=== PATIENT | male | born 1990 ===

== ENCOUNTER 2023-10-23 02:34 | Inpatient (IN) | payer OTHER, SELFPAY ==
[2023-10-23] VITALS (14 sets, daily range): BP systolic 92–129; BP diastolic 45–80; PULSE 66–108; RESP 4–20; TEMP 34.3–36.8; O2SAT 93–100; BMI 28.0
--- NOTE | ~2023-10-23 | CT_ITS ---
EXAMINATION: CT ANGIOGRAM NECK AND HEAD CLINICAL INFORMATION: Right-sided numbness and weakness COMPARISON: None. TECHNIQUE: Initial noncontrast head CT was performed. Test bolus sequences followed by intravenous administration 70 mL of Omnipaque 350. Helical imaging was performed in the axial plane from the thoracic inlet to the skull vertex. Delayed postcontrast imaging of the head was also performed. The data was processed at the technologist infectious disease's workstation for generation of MIP sequences. Angled MIPs and volume rendered reformatted images were also generated at an offline 3D workstation. Stenoses are assessed in accordance with NASCET criteria unless otherwise indicated. DOSE LOWERING TECHNIQUES: This CT examination was performed using dose optimization techniques as appropriate, variously including the following: - Automated exposure control - Adjustment of mA and/or kV according to patient size (this includes techniques or standardized protocols for targeted exams were dose is matched to indication/reason for exam; i.e. extremities or head) - Use of iterative reconstruction technique DLP: 2325 mGy-cm FINDINGS: Neck CTA: There is a classic 3 vessel branching pattern of the aortic arch. Normal appearance of the visualized aortic arch and proximal branches. No evidence of stenosis at the branch origins. Both vertebral arteries are widely patent throughout their extracranial cervical course. Normal appearance of the common and internal carotid arteries without focal stenosis. Brain CTA: Normal appearance of the vertebral arteries. Normal appearance of the basilar and superior cerebellar arteries. There appears to be origin of the left posterior cerebral artery. Normally opacified posterior cerebral arteries bilaterally. Normal appearance of the intradural internal carotid arteries without focal stenosis. Normal appearance of the anterior cerebral and middle cerebral arteries without focal occlusion or stenosis. Normal anterior communicating artery. Normal arborization of the middle cerebral arteries. CT Head: No intracranial mass, hemorrhage, extra-axial collection, or midline shift. The davis-white matter differentiation is preserved. No pathologic intra-axial enhancement or regional oligemia. No hydrocephalus. The mastoid air cells and paranasal sinuses remain well aerated. CT Neck: The thyroid gland and remaining cervical soft tissues are normal in appearance. Degenerative endplate changes at C6-C7 with mild intervertebral disc space narrowing. Upper Chest: No abnormalities in the visualized lung apices or upper mediastinum. CT/CT angio head neck IMPRESSION: No hemodynamically significant stenosis in the major arteries of the neck. No large vessel occlusion or significant stenosis in the intracranial circulation.
--- NOTE | ~2023-10-23 | XR_ITS ---
EXAMINATION: XR CHEST CLINICAL INFORMATION: Hypoxia. COMPARISON: None available. TECHNIQUE: Frontal view of the chest was obtained. FINDINGS: Low lung volumes. Mild bibasilar atelectasis. No consolidation, pneumothorax, or pleural effusion. Cardiac and mediastinal contours are normal. Pulmonary vasculature is unremarkable. No acute osseous findings. XR/XR chest 1V IMPRESSION: Low lung volumes with mild bibasilar atelectasis.
--- NOTE | 2023-10-23 02:36 | PC.NURSE ---
Pt to office coordinator receptionist desk with complaints of possible stroke. This securities underwriter attempted to bring pt into triage room for initial assessment and vitals, however pt states he needs a drink. Pt advised that he will need to be assessed by the provider first and pt states vwell I need a drink are you refusing me medical care?! This securities underwriter again advised pt to enter triage room to be assessed and pt states Im getting a drink first! Pt observed walking to vending machines, purchasing an orange soda, dropping orange soda, quickly picking it up and chugging it. No slurred speech, facial droop, or overt extremity weakness noted. Pt taken directly to ED 20.
--- NOTE | 2023-10-23 03:44 | ECG_ITS ---
Test Reason : OD Blood Pressure : / mmHG Vent. Rate : 085 BPM Atrial Rate : 085 BPM P-R Int : 152 ms QRS Dur : 092 ms QT Int : 370 ms P-R-T Axes : 033 -05 006 degrees QTc Int : 440 ms Normal sinus rhythm Minimal voltage criteria for LVH, may be normal variant ( R in aVL ) Nonspecific T wave abnormality Abnormal ECG No previous ECGs available Referred By: Sydnie Jiménez Electronically Signed By:Sukhdev Bolivar
[2023-10-23 04:03] LABS: MANUAL DIFF FLAG NO
[2023-10-23 04:04] LABS: Basophils Percent Auto 0.3 % (0-2); Eosinophils Percent Auto 0.5 % (0-4); Hematocrit 39.7 % (42.0-52.0); Hemoglobin 13.5 g/dl (14.0-18.0); Imm Gran Abs Auto 0.01 X10*3/uL (0.00-0.03); Imm Gran Pct Auto 0.2 % (0.0-0.4); Lymphocytes Absolute Auto 1.3 X10*3/uL (1.2-4.9); Lymphocytes Percent Auto 22.4 % (20-40); Mean Corpuscular Hemoglobin 29.6 pg (27.0-33.0); Mean Corpuscular Volume 87.1 fL (80.0-98.0); Mean Platelet Volume 9.5 fL (9.4-12.4); Monocytes Absolute Auto 0.7 X10*3/uL (0.1-1.2); Monocytes Percent Auto 10.9 % (2-11); Neutrophils Absolute Auto 3.9 x10*3/uL (2.0-8.3); Neutrophils Percent Auto 65.7 % (45-73); Platelet Count 169 X10*3/uL (160-400); Red Blood Count 4.56 X10*6/uL (4.60-5.80); Red Cell Distribution Width 12.7 % (11.0-16.0); White Blood Count 5.9 X10*3/uL (4.8-10.8)
[2023-10-23] MEDS: 0.9 % Sodium Chloride 1,000 ML 999 ML IV ×2 (04:06→04:36)
[2023-10-23 04:20] LABS: Alanine Aminotransferase 93 U/L (0-40); Albumin Level 4.2 g/dL (3.5-5.0); Alkaline Phosphatase 62 U/L (39-117); Anion Gap 11 (12-20); Aspartate Amino Transferase 311 U/L (5-37); Bilirubin Direct 0.2 mg/dL (0.0-0.5); Bilirubin Total 0.5 mg/dL (0.0-1.0); Blood Urea Nitrogen 19 mg/dL (9-16); Calcium 8.9 mg/dL (8.4-10.2); Carbon Dioxide 30 mmol/L (22-29); Chloride 102 mmol/L (96-108); Creatinine Clr Calc Pharmacy 92.3; Estimated Glomerular Filt Rate > 60; Ethanol < 10 mg/dL; Glucose Random 195 mg/dL (60-115); Lipase 11 U/L (8-78); Magnesium 2.3 mg/dL (1.6-2.6); Potassium 3.6 mmol/L (3.3-5.1); Sodium 139 mmol/L (135-145); Total Protein 7.3 g/dL (6.5-8.0)
--- NOTE | 2023-10-23 04:23 | ED_ITS ---
HPI - Neuro Symptoms/Deficit General Chief Complaint: ETOH/Substance Use Stated Complaint: stroke Time Seen by Provider: 10/23/23 03:41 Source: patient Mode of arrival: ambulatory Limitations: other (under the influence very poor historian) History of Present Illness ED Provider: AURE LOCK Narrative: 33 yo male with PMH of IVDA who presented to the triage window with c/o stroke then walked away from the industrial workers got an orange soda and threw it on the ground. Our hot car charger then brought him back and got him changed over with security and he gave a more lucid statement of overdosing yesterday and waking up with R sided weakness and numbness. When I went to see him she notes he is much more somnolent pinpoint pupils there is concern he used again as he was not like this on triage. He denies. He tells me although he is slurring his words and falling asleep that he used yesterday and overdosed he thinks it was around 3pm he then woke up at 5pm and his R side felt weaker and numb. He used again in the evening and somehow made it here from [place] but that is not clear. He then states he was recently at [facility] with a PICC line but then falls asleep. His is 95% on 4L NC, wakes to loud verbal stimuli, jumps and yells no if he hears the word narcan and his end tidal is was 10 to 12. Onset (ago): day(s) (?yesterday 3pm) Location: right face, right arm and right leg History of same: No Severity: mild Quality: weak and numb Relieving factors: none Exacerbating factors: none Context: sudden onset On Anticoagulants: No Associated symptoms: denies other symptoms Treatments Prior to Arrival: none Related Data Home Medications ?Medication ?Instructions ?Recorded ?Confirmed amitriptyline 50 mg tablet 50 mg PO BEDTIME 10/23/23 aripiprazole 15 mg tablet 15 mg PO DAILY 10/23/23 buprenorphine 8 mg-naloxone 2 mg 1 film sublingual TID 10/23/23 sublingual film dextroamphetamine-amphetamine ER 1 cap PO DAILY 10/23/23 15 mg 24hr capsule,extend release dextroamphetamine-amphetamine ER 1 cap PO BID 10/23/23 30 mg 24hr capsule,extend release gabapentin 800 mg tablet 800 mg PO TID 10/23/23 hydroxyzine pamoate 25 mg capsule 25 mg PO TID 10/23/23 ibuprofen 600 mg tablet 600 mg PO Q6H PRN Pain (Scale 10/23/23 Score 1-3) ketoconazole 2 % topical cream 1 appl topical DAILY 10/23/23 loratadine 10 mg tablet 10 mg PO DAILY 10/23/23 testosterone cypionate 200 mg/mL IM 10/23/23 intramuscular oil Allergies Allergy/AdvReac Type Severity Reaction Status Date / Time No Known Allergies Allergy Verified 10/23/23 02:54 Review of Systems 2 Review of Systems: Constitutional : No Fever, No Chills, No Fatigue ENT/Mouth : No sore throat, No Rhinorrhea Eyes: No Eye Pain, No Swelling, No Redness Cardiovascular : No Chest Pain, No SOB, No Dyspnea on Exertion Respiratory : No Cough, No Sputum Gastrointestinal : No Nausea, No Vomiting, No Diarrhea, No abdominal Pain Genitourinary : No Dysuria, No Urinary Frequency, No Hematuria, Musculoskeletal : No joint pain, No Myalgias, No Joint Swelling Skin : No Skin Lesions, No rash Neuro : pos Weakness, pos Numbness, No Dizziness, no Headache Psych : No Anxiety/Panic, No Depression All other systems reviewed and are negative [facility] Past Medical History Medical History Intravenous drug abuse Social History Social History (Updated 10/23/23 @ 04:33 by Sydnie Jiménez DO) Patient Tobacco Use Status: Current everyday Tobacco user Smoked in Last 30 Days: Yes Substance Use Type: Crack/Cocaine and Heroin Advance Directives: No Advance Directives Information Provided: No Do you have a plan to hurt others: No Plan Physical Exam 2 Vital Signs: Vital Signs: Last Vital Signs Temp 97.5 F 10/23/23 07:15 Pulse 78 10/23/23 07:15 Resp 10 L 10/23/23 07:15 BP 112/63 10/23/23 07:15 Pulse Ox 100 10/23/23 07:15 O2 Del Method Nasal Cannula 10/23/23 07:15 O2 Flow Rate 3 10/23/23 07:15 BMI result Body Mass Index 28.0 Appearance: opiate intoxication - somnolent but woken by voice saying narcan, tactile stimuli on end tidal and O2, mild acute distress. Eyes: Pupils pinpoint ENT: Pharynx dry MMM Neck: Normal inspection. Neck supple. CVS: tachycardic heart rate and rhythm. Pulses normal. Respiratory: No respiratory distress. Breath sounds normal. Abdomen: Soft and nontender. Skin: Skin warm and dry. Normal skin color. track kendall noted no signs of cellulitis Extremities: No lower extremity edema. compartments are soft and compressible I do not see any areas of compartment syndrome R arm and leg is soft, L ball of foot bloodied blister Neuro: Oriented X 3. 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, R leg weaker than left, he reports he feels it less than left to light touch has R wrist drop Course Course Course Narrative: more sleepy 0.2mg narcan ordered he is now hypotensive and less responsive Reevaluation(s) Reevaluation #1: patient more awake still not a good historian no vomiting BP is coming up Reevaluation #2: BP coming up Medications Administered Generic Name Dose Route Start Last Admin Trade Name Freq PRN Reason Stop Dose Admin Sodium Chloride 1,000 mls @ 200 mls/hr 10/23/23 05:15 10/23/23 06:16 Ns IVCONT 10/23/23 10:14 200 mls/hr .Q5H ALVARO Administration Discontinued Medications Generic Name Dose Route Start Last Admin Trade Name Freq PRN Reason Stop Dose Admin Sodium Chloride 1,000 mls @ 999 mls/hr 10/23/23 03:42 10/23/23 06:15 Ns IV 10/23/23 04:42 Infused .Q1H1M ONE Infusion Sodium Chloride 1,000 mls @ 999 mls/hr 10/23/23 04:32 10/23/23 06:15 Ns IV 10/23/23 05:32 Infused .Q1H1M ONE Infusion Iohexol 70 ml 10/23/23 05:28 10/23/23 05:29 Iohexol 350 Mg/Ml 100 Ml Infus..Btl IV 10/23/23 05:29 70 ml ONCE ONE Administration Naloxone HCl 0.2 mg 10/23/23 06:20 10/23/23 06:29 Naloxone Hcl 0.4 Mg/Ml Vial IVPUSH 10/23/23 06:21 0.2 mg STAT STA Administration Ondansetron HCl 4 mg 10/23/23 06:23 10/23/23 06:31 Ondansetron Hcl 4 Mg/2 Ml Vial IVPUSH 10/23/23 06:24 4 mg ONCE ONE Administration Medical Decision Making Medical Decision Making [facility] Narrative: 33 yo male with PMH of IVDA here with c/o R sided weakness and numbness following overdose sometime yesterday he thinks after using at 3pm but he also used after he thinks he was down for 2 hours. Unsure if this is septic embolic, hypoxic event, very high suspicion of peripheral nerve compression. He does have some weakness but he is also not the best historian. No signs of compartment syndrome. Labs, IVF, CTA head and neck. He has R wrist drop from likely prolonged downtime. We did ask for records from [facility] Differential Diagnosis Differential Diagnoses: The differential diagnosis associated with the presentation includes rhabdo, hypoxic event, embolic event, ICH, drug abuse, prior stroke Admission/Observation Consideration of admission/observation: Escalation of care including admission/observation considered rhabdo needs admission Consult Healthcare Provider Management of the patient was discussed with: Hospitalist (will admit 625am Neil) Lab Data [facility] Lab Attestation statement: I reviewed the patient's lab results. 10/23/23 03:57 10/23/23 03:57 Labs: Lab Results 10/23/23 Range/Units 03:57 WBC 5.9 (4.8-10.8) X10*3/uL RBC 4.56 L (4.60-5.80) X10*6/uL Hgb 13.5 L (14.0-18.0) g/dl Hct 39.7 L (42.0-52.0) % MCV 87.1 (80.0-98.0) fL MCH 29.6 (27.0-33.0) pg MCHC 34.0 (31.0-36.0) g/dl RDW 12.7 (11.0-16.0) % Plt Count 169 (160-400) X10*3/uL MPV 9.5 (9.4-12.4) fL Immature Gran % (Auto) 0.2 (0.0-0.4) % Neut % (Auto) 65.7 (45-73) % Lymph % (Auto) 22.4 (20-40) % [place] % (Auto) 10.9 (2-11) % Eos % (Auto) 0.5 (0-4) % Baso % (Auto) 0.3 (0-2) % Lymph # (Auto) 1.3 (1.2-4.9) X10*3/uL [place] # (Auto) 0.7 (0.1-1.2) X10*3/uL Eos # (Auto) 0.0 (0.0-0.4) X10*3/uL Baso # (Auto) 0.0 (0.0-0.2) X10*3/uL Abs Immat Gran (auto) 0.01 (0.00-0.03) X10*3/uL Absolute Neuts (auto) 3.9 (2.0-8.3) x10*3/uL Absolute Nucleated RBC 0.000 (0.0-0.012) X10*3/uL Nucleated RBC % (auto) 0.0 (0.0-0.2) /100WBC PT 14.5 H (11.1-13.3) SEC INR 1.2 H (0.9-1.1) Sodium 139 (135-145) mmol/L Potassium 3.6 (3.3-5.1) mmol/L Chloride 102 (96-108) mmol/L Carbon Dioxide 30 H (22-29) mmol/L Anion Gap 11 L (12-20) BUN 19 H (9-16) mg/dL Creatinine 1.25 (0.5-1.4) mg/dL Estim Creat Clear Calc 92.3 Estimated GFR > 60 Random Glucose 195 H (60-115) mg/dL Calcium 8.9 (8.4-10.2) mg/dL Magnesium 2.3 (1.6-2.6) mg/dL Total Bilirubin 0.5 (0.0-1.0) mg/dL Direct Bilirubin 0.2 (0.0-0.5) mg/dL AST 311 H (5-37) U/L ALT 93 H (0-40) U/L Alkaline Phosphatase 62 (39-117) U/L Total Creatine Kinase 82285 H (38-174) U/L Troponin I High Sens 5.0 (<3.5-35.0) ng/L Total Protein 7.3 (6.5-8.0) g/dL Albumin 4.2 (3.5-5.0) g/dL Lipase 11 (8-78) U/L Ethyl Alcohol < 10 mg/dL Influenza Type A (PCR) NEGATIVE (Negative) Influenza Type B (PCR) NEGATIVE (Negative) RSV RNA Qual (PCR) NEGATIVE (Negative) SARS-CoV-2 RNA (RT-PCR) NEGATIVE (Negative) Independent Interpretation I performed an independent interpretation of an: EKG and CT Scan (normal) Interpretation: Rate: 85 Rhythm: NSR [place]: left, LVH Normal P waves. Normal JERAD. Normal QRS complex. ST T wave : no GRISELDA, biphasic t waves V1 and V1 qTC: 440 prior studies: no prior The study has been interpreted contemporaneously by me. . Radiology Impression Discussion of test interpretation with radiology: I have reviewed the radiologist's reading. Critical Care Time Critical Care Time Critical Care Time: Yes Total Critical Care Time: 60 Attestation: 2L of IVF, narcan, CTA of head/neck, repeat assessments, admission, narcan for overdose I attest to this time spent taking care of the patient Discharge Plan Discharge Clinical Impression: Weakness, Right wrist drop Opiate overdose Qualifiers: Encounter type: initial encounter Injury intent: accidental or unintentional Q ualified Code(s): T40.601A - Poisoning by unspecified narcotics, accidental (unintentional), initial encounter Rhabdomyolysis Qualifiers: Rhabdomyolysis type: non-traumatic Qualified Code(s): M62.82 - Rhabdomyolysis Patient Disposition: Admitted As Inpatient Print Language: Unable To Collect
--- NOTE | 2023-10-23 04:28 | PC.NURSE ---
this information writer triaged patient immediately upon arrival to ED 20, pt was awake, alert, answering questions appropriately, no facial droop or obvious deformities/weakness noted. 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 security at bedside during time of triage, changed over into hospital attire and belongings placed in decon. moments later, primary RN entered room and had discussion/assessment of patient. after some time, pt fell asleep, O2 sat dropped down to 86% room air and patient appeared extremely lethargic/difficult to arouse. pt moved to ED room 12 and placed on 4L O2 with capnography. pt denies using anything in the room, states he used just prior to arrival. RR slow, approx 4. end tidal 8-12. MD her aware and at bedside, no order to administer narcan at this time. pt arousable to name and sternal rubs. pt within view of nurses station. iv line established, labs sent, waiting for CT scan. normal saline fluid bolus infusing. plan of care ongoing
[2023-10-23 04:35] LABS: INTERNATIONAL NORM RATIO 1.2 (0.9-1.1); Prothrombin Time 14.5 SEC (11.1-13.3)
[2023-10-23 04:40] LABS: Influenza A PCR NEGATIVE (Negative); Influenza B PCR NEGATIVE (Negative); Resp Syncy Virus RNA Qual PCR NEGATIVE (Negative); SARS COV2 PCR INHOUSE NEGATIVE (Negative)
[2023-10-23] MEDS: iohexoL 350 MG/ML 100 ML INFUS..BTL 70 ML IV (05:29)
[2023-10-23] MEDS: 0.9 % Sodium Chloride 1,000 ML 200 ML IVCONT (06:16)
[2023-10-23] MEDS: Naloxone HCl 0.4 MG/ML VIAL 0.2 MG IVPUSH (06:29)
[2023-10-23] MEDS: ondansetron HCL 4 MG/2 ML VIAL IVPUSH (06:31)
--- NOTE | 2023-10-23 08:16 | PHA.MEDREC ---
Addendum entered by Maren Dodson [facility] 10/24/23 08:06: Patient was able to tell his RN this morning his medication list. Patient confirmed to no longer be on Keppra, Claritin, Abilify, Suboxone, and hydroxyzine. Patient currently only takes adderall, amitriptyline, valium and testosterone. Addendum entered by Maren Dodson [facility] 10/23/23 09:36: received call back from the pharmacy, confirmed patient is on keppra 500 mg BID and testos 0.5 mL Q7days on Wednesdays Original Note: Pharmacy Consult ? Medication Reconciliation Pharmacy has completed the medication reconciliation. Patient is unable to give history. Used pharmacy claims as well as PDMP. Could not confirm dose of testosterone, Left voicemail will pharmacy for clarification.
[2023-10-23] MEDS: Sodium Bicarbonate 8.4% 150 MEQ in Dextrose 5 % 850 ML 50 MEQ IV (08:25)
--- NOTE | 2023-10-23 08:26 | PC.NURSE ---
patient resting quietly in bed, respirations slow, equal and unlabored. patient wakes up to verbal stimuli, pupils perrla - pinpoint. patient responds appropriatly to questions, alert and oriented x4, very sleepy. VSS, skin dry and intact. patient noted to have blisters on feet. patient has present equal radial pulses, bilat pedal pulses present equal. patient noted on the right side to have drop wrist. patient medicated per MAY, has NS running 200ml/hr
--- NOTE | 2023-10-23 08:36 | PM.IMHP ---
History of Present Illness Date of Service: 10/23/23 Chief Complaint: right sided weakness 33M PMH polysubstance dependence, htn, adhd, mood disorder, LBBB, presented with right sided weakness. patient stating he was having a stroke . cta head and neck was negative. he is vague historian. very lethargic during interview. admits to taking opiates. reports passing out previously and lying on ground for long time. labs significant for rhabdo with cpk of 20K, creatinine normal. did require one dose of narcan for bradypnea and hypotension, responded well. Review of Systems Review of Systems: Yes all other systems are reviewed and are negative [facility] Medical History Intravenous drug abuse Social History Patient Tobacco Use Status: Current everyday Tobacco user Smoked in Last 30 Days: Yes Substance Use Type: Crack/Cocaine and Heroin Advance Directives: No Advance Directives Information Provided: No Do you have a plan to hurt others: No Plan Meds Allergies Allergy/AdvReac Type Severity Reaction Status Date / Time No Known Allergies Allergy Verified 10/23/23 02:54 Active Medications: Current Medications Amitriptyline HCl (Amitriptyline Hcl 50 Mg Tablet) 50 mg PO BEDTIME ALVARO Amphetamine/Dextroamphetamine (Dextroamphetamine/Amphetamine Xr 10 Mg Cap.Er.24h) 30 mg PO BID ALVARO Amphetamine/Dextroamphetamine (Dextroamphetamine/Amphetamine Xr 5 Mg Cap.Er.24h) 15 mg PO DAILY ALVARO Aripiprazole (Aripiprazole 15 Mg Tablet) 15 mg PO DAILY [facility] Buprenorphine/Naloxone (Buprenorphine/Naloxone 8/2 Mg Film) 1 film SUBLINGUAL TID [facility] Sodium Chloride (Ns) 1,000 mls @ 200 mls/hr IVCONT .Q5H ALVARO Stop: 10/23/23 10:14 Last Admin: 10/23/23 06:16 Dose: 200 mls/hr Sodium Bicarbonate 150 meq/ (Dextrose) 1,000 mls @ 50 mls/hr IV .Q20H ALVARO Last Admin: 10/23/23 08:25 Dose: 50 mls/hr Lactated Ringer's (Lr) 1,000 mls @ 150 mls/hr IVCONT .Q6H40M [facility] Levetiracetam (Levetiracetam 500 Mg Tablet) 500 mg PO BID [facility] Loratadine (Loratadine 10 Mg Tablet) 10 mg PO DAILY [facility] Home Medications ?Medication ?Instructions ?Recorded ?Confirmed ?Last Taken ?Type amitriptyline 50 mg tablet 50 mg PO BEDTIME 10/23/23 10/23/23 Unknown History aripiprazole 15 mg tablet 15 mg PO DAILY 10/23/23 10/23/23 Unknown History buprenorphine 8 mg-naloxone 2 mg 1 film sublingual TID 10/23/23 10/23/23 Unknown History sublingual film dextroamphetamine-amphetamine ER 1 cap PO DAILY 10/23/23 10/23/23 Unknown History 15 mg 24hr capsule,extend release dextroamphetamine-amphetamine ER 1 cap PO BID 10/23/23 10/23/23 Unknown History 30 mg 24hr capsule,extend release gabapentin 800 mg tablet 800 mg PO TID 10/23/23 10/23/23 Unknown History hydroxyzine pamoate 25 mg capsule 25 mg PO TID 10/23/23 10/23/23 Unknown History ibuprofen 600 mg tablet 600 mg PO Q6H PRN Pain (Scale 10/23/23 10/23/23 Unknown History Score 1-3) ketoconazole 2 % topical cream 1 appl topical DAILY 10/23/23 10/23/23 Unknown History levetiracetam 500 mg tablet 500 mg PO BID 10/23/23 10/23/23 Unknown History loratadine 10 mg tablet 10 mg PO DAILY 10/23/23 10/23/23 Unknown History testosterone cypionate 200 mg/mL IM 10/23/23 Unknown History intramuscular oil Physical Exam Vital Signs and Narrative: Vital Signs: Last Vital Signs Temp 97.5 F 10/23/23 07:15 Pulse 78 10/23/23 07:15 Resp 10 L 10/23/23 07:15 BP 112/63 10/23/23 07:15 Pulse Ox 100 10/23/23 07:15 O2 Del Method Nasal Cannula 10/23/23 07:15 O2 Flow Rate 3 10/23/23 07:15 BMI result Body Mass Index 28.0 lethargic oriented times 3, pinpoint pupils, lungs clear, right wrist drop, rue mildly swollen, not tense, sensation and pulses intact Results Labs 10/23/23 03:57 10/23/23 03:57 Labs: Laboratory Results - last 24 hr 10/23/23 03:57 MCV 87.1 MCH 29.6 MCHC 34.0 RDW 12.7 Plt Count 169 MPV 9.5 Immature Gran % (Auto) 0.2 Neut % (Auto) 65.7 Lymph % (Auto) 22.4 [place] % (Auto) 10.9 Eos % (Auto) 0.5 Baso % (Auto) 0.3 Lymph # (Auto) 1.3 [place] # (Auto) 0.7 Eos # (Auto) 0.0 Baso # (Auto) 0.0 Abs Immat Gran (auto) 0.01 Absolute Neuts (auto) 3.9 Absolute Nucleated RBC 0.000 Nucleated RBC % (auto) 0.0 PT 14.5 H INR 1.2 H Anion Gap 11 L Estim Creat Clear Calc 92.3 Estimated GFR > 60 Random Glucose 195 H Calcium 8.9 Magnesium 2.3 Total Bilirubin 0.5 Direct Bilirubin 0.2 AST 311 H ALT 93 H Alkaline Phosphatase 62 Total Creatine Kinase 50607 H Troponin I High Sens 5.0 Total Protein 7.3 Albumin 4.2 Lipase 11 Ethyl Alcohol < 10 Influenza Type A (PCR) NEGATIVE Influenza Type B (PCR) NEGATIVE RSV RNA Qual (PCR) NEGATIVE SARS-CoV-2 RNA (RT-PCR) NEGATIVE Imaging Radiologist's Impressions: Impressions Chest X-Ray 10/23/23 04:45 IMPRESSION: Low lung volumes with mild bibasilar atelectasis. Head/Neck CTA 10/23/23 05:20 IMPRESSION: No hemodynamically significant stenosis in the major arteries of the neck. No large vessel occlusion or significant stenosis in the intracranial circulation. Assessment and Plan (1) Right wrist drop: Status: Acute Plan 33M PMH polysubstance dependence, htn, adhd, mood disorder, LBBB, presented with right sided weakness acute rhabdomyolosis, due to acute toxic encephlaopathy from opiates, complicated by right wrist drop iv hydration, monitor labs, addiction eval, OT htn no longer on meds, monitor mood disorder, adhd continue adderal, keppra, abilify, amitryptilline dvt prophylaxis - lovenox full code patient with rhabdo, likely needs atleast 2 midnights inpatient for aggressive iv hydation Quality Stroke Does the patient have a stroke diagnosis?: No VTE Prior VTE?: No VTE Risk Level:: Medical - moderate - high VTE Device Contraindication: Treatment Not Indicated VTE Drug Contraindication: N/A - Med Ordered
[2023-10-23] MEDS: Loratadine 10 MG TABLET PO (11:18)
[2023-10-23] MEDS: levETIRAcetam 500 MG TABLET PO (11:18)
[2023-10-23] MEDS: Dextroamphetamine/Amphetamine XR 10 MG CAP.ER.24H 30 MG PO ×2 (11:18→20:36)
[2023-10-23] MEDS: Dextroamphetamine/Amphetamine XR 5 MG CAP.ER.24H 15 MG PO (11:18)
[2023-10-23] MEDS: Enoxaparin Sodium 40 MG/0.4 ML SYRINGE SUBCUT (11:19)
[2023-10-23] MEDS: Lactated Ringers 1,000 ML 150 ML IVCONT ×2 (12:04→19:16)
--- NOTE | 2023-10-23 12:16 | PC.NURSE ---
patient right AC IV infiltrated. New IV placed in the patient right foot.
[2023-10-23] MEDS: oxyCODONE HCl Immed Release 5 MG TABLET PO ×2 (13:58→16:42)
[2023-10-23] MEDS: Nicotine 21 MG PATCH.TD24 TRANSDERMA (13:58)
--- NOTE | 2023-10-23 14:50 | HO.ADDICTCON ---
History of Present Illness Date of Service: 10/23/2023 Chief Complaint: rhabdo Reason for Consult: OUD Sources of Information: patient interviewed and chart reviewed HPI Narrative: Patient is a 33 year old male medically admitted with rhabdo after presenting to the ED overnight reporting that he felt like had a stroke due to weakness and numbness on right side. During ED work up he became increasingly somnolent and required small dose of naloxone. Chart reviewed and patient seen by t/w and full time babysitter in main ED. Patient awake, alert, although still appears to be under the influence of substances--pupils pinpoint and nystagmus noted. He denies any withdrawal sx at this time, but states that they will be coming soon . States that he usually takes Subutex 8mg TID--has not had any in about 10 days. Did not appear diaphoretic or restless, speech slightly slurred Reports using approx a gram of fentanyl daily Inquired about benzo use, he reports he is prescribed Diazepam [facility] reviewed, numerous prescriber and prescriptions --also in different states, likely due to being in treatment programs -Buprenorphine 10/11 -Diazepam 10mg 10/15 -----numerous scripts for Diazepam in varying amounts, . Question if he was being tapered off of medication. -Adderall 10/15 Review of Systems Constitutional: Reports as per HPI and Reports no additional constitutional complaints Diagnostics Vital Signs (24Hr): Vital Signs - 24 hr 10/23/23 02:48 10/23/23 04:00 10/23/23 06:12 Temperature 97.9 F 97.4 F 98.2 F Pulse Rate 108 H 66 68 Respiratory Rate 20 4 L 5 L Blood Pressure 129/80 117/79 92/45 L Pulse Oximetry 93 94 96 Oxygen Delivery Method Room Air Room Air Room Air Oxygen Flow Rate 10/23/23 06:47 10/23/23 07:15 10/23/23 11:10 Temperature 97.5 F 97 F Pulse Rate 72 78 85 Respiratory Rate 5 L 10 L 12 Blood Pressure 113/69 112/63 107/67 Pulse Oximetry 100 100 99 Oxygen Delivery Method Room Air Nasal Cannula Room Air Oxygen Flow Rate 3 10/23/23 13:53 Temperature 97.5 F Pulse Rate 67 Respiratory Rate 16 Blood Pressure 107/49 L Pulse Oximetry 96 Oxygen Delivery Method Room Air Oxygen Flow Rate BMI result Body Mass Index 28.0 Labs 10/23/23 03:57 10/23/23 03:57 Labs: Laboratory Results - last 48 hr 10/23/23 03:57 WBC 5.9 RBC 4.56 L Hgb 13.5 L Hct 39.7 L MCV 87.1 MCH 29.6 MCHC 34.0 RDW 12.7 Plt Count 169 MPV 9.5 Immature Gran % (Auto) 0.2 Neut % (Auto) 65.7 Lymph % (Auto) 22.4 [place] % (Auto) 10.9 Eos % (Auto) 0.5 Baso % (Auto) 0.3 Lymph # (Auto) 1.3 [place] # (Auto) 0.7 Eos # (Auto) 0.0 Baso # (Auto) 0.0 Abs Immat Gran (auto) 0.01 Absolute Neuts (auto) 3.9 Absolute Nucleated RBC 0.000 Nucleated RBC % (auto) 0.0 PT 14.5 H INR 1.2 H Sodium 139 Potassium 3.6 Chloride 102 Carbon Dioxide 30 H Anion Gap 11 L BUN 19 H Creatinine 1.25 Estim Creat Clear Calc 92.3 Estimated GFR > 60 Random Glucose 195 H Calcium 8.9 Magnesium 2.3 Total Bilirubin 0.5 Direct Bilirubin 0.2 AST 311 H ALT 93 H Alkaline Phosphatase 62 Total Creatine Kinase 36890 H Troponin I High Sens 5.0 Total Protein 7.3 Albumin 4.2 Lipase 11 Ethyl Alcohol < 10 Influenza Type A (PCR) NEGATIVE Influenza Type B (PCR) NEGATIVE RSV RNA Qual (PCR) NEGATIVE SARS-CoV-2 RNA (RT-PCR) NEGATIVE Imaging Radiology Impressions: ITS Impressions Chest X-Ray 10/23/23 04:45 IMPRESSION: Low lung volumes with mild bibasilar atelectasis. Head/Neck CTA 10/23/23 05:20 IMPRESSION: No hemodynamically significant stenosis in the major arteries of the neck. No large vessel occlusion or significant stenosis in the intracranial circulation. Mental Status Exam Mental Status Exam Patient Appearance: Appropriate Level of Consciousness: Awake (most of the interview ) and Appropriate Patient Behavior: Appropriate Affect Description: Calm Speech Pattern: Slurred (slightly ) Medications Medications Current Medications Acetaminophen (Acetaminophen 325 Mg Tablet) 650 mg PO Q6H PRN PRN Reason: Pain, Mild (Pain Scale 1-3), fever or headache Amitriptyline HCl (Amitriptyline Hcl 50 Mg Tablet) 50 mg PO BEDTIME [facility] Amphetamine/Dextroamphetamine (Dextroamphetamine/Amphetamine Xr 10 Mg Cap.Er.24h) 30 mg PO BID [facility] Last Admin: 10/23/23 11:18 Dose: 30 mg Amphetamine/Dextroamphetamine (Dextroamphetamine/Amphetamine Xr 5 Mg Cap.Er.24h) 15 mg PO DAILY [facility] Last Admin: 10/23/23 11:18 Dose: 15 mg Aripiprazole (Aripiprazole 15 Mg Tablet) 15 mg PO DAILY [facility] Last Admin: 10/23/23 12:09 Dose: Not Given Buprenorphine/Naloxone (Buprenorphine/Naloxone 8/2 Mg Film) 1 film SUBLINGUAL TID [facility] Last Admin: 10/23/23 10:08 Dose: Not Given Calcium Carbonate (Calcium Carbonate 750 Mg Tab.Chew) 750 mg PO Q4H PRN PRN Reason: Heartburn Diazepam (Diazepam 2 Mg Tablet) 2 mg PO TID PRN PRN Reason: Anxiety Enoxaparin Sodium (Enoxaparin Sodium 40 Mg/0.4 Ml Syringe) 40 mg SUBCUT Q24H [facility] Last Admin: 10/23/23 11:19 Dose: 40 mg Gabapentin (Gabapentin 400 Mg Capsule) 800 mg PO TID [facility] Sodium Bicarbonate 150 meq/ (Dextrose) 1,000 mls @ 50 mls/hr IV .Q20H [facility] Last Admin: 10/23/23 08:25 Dose: 50 mls/hr Lactated Ringer's (Lr) 1,000 mls @ 150 mls/hr IVCONT .Q6H40M [facility] Last Admin: 10/23/23 12:04 Dose: 150 mls/hr Levetiracetam (Levetiracetam 500 Mg Tablet) 500 mg PO BID [facility] Last Admin: 10/23/23 11:18 Dose: 500 mg Loratadine (Loratadine 10 Mg Tablet) 10 mg PO DAILY [facility] Last Admin: 10/23/23 11:18 Dose: 10 mg Magnesium Hydroxide (Milk Of Magnesia 30 Ml Oral.Susp) 30 ml PO DAILY PRN PRN Reason: Constipation Melatonin (Melatonin 3 Mg Tablet) 6 mg PO BEDTIME PRN PRN Reason: Insomnia Nicotine (Nicotine 21 Mg Patch.Td24) 21 mg TRANSDERMA DAILY [facility] Last Admin: 10/23/23 13:58 Dose: 21 mg Sodium Chloride (0.9 % Sodium Chloride Flush 3 Ml Syringe) 3 ml IVFLUSH QSHIFT [facility] Allergies Allergies Allergy/AdvReac Type Severity Reaction Status Date / Time No Known Allergies Allergy Verified 10/23/23 02:54 Assessment & Plan Assessment & Plan (1) Opioid use disorder: Status: Acute Code(s): F11.90 - Opioid use, unspecified, uncomplicated Assessment and Plan: too soon to restart buprenorphine due to fentanyl use --patient also declined for this reason does not wish to take methadone to address withdrawal sx comfort medications as needed oxycodnone PRN to address discomfort and withdrawal sx, until Thursday when Buprenorphine can be restarted concern for benzodiazepine misuse monitor for oversedation UDS pending HIV and Hep C screen appropriate given risk factors Total time managing care of this patient today __20__ minutes. PMFSH Past Medical History Medical History Intravenous drug abuse Social History Social History Patient Tobacco Use Status: Current everyday Tobacco user Smoked in Last 30 Days: Yes Substance Use Type: Crack/Cocaine and Heroin Advance Directives: No Advance Directives Information Provided: No Do you have a plan to hurt others: No Plan
[2023-10-23] MEDS: diazePAM 2 MG TABLET PO ×2 (16:26→22:56)
[2023-10-23] MEDS: Gabapentin 400 MG CAPSULE 800 MG PO ×2 (16:26→20:34)
--- NOTE | 2023-10-23 17:03 | PC.NURSE ---
800 ml urine emptied from patient urinal
[2023-10-23] MEDS: Amitriptyline HCl 50 MG TABLET PO (20:35)
--- NOTE | 2023-10-23 21:04 | PC.NURSE ---
Addendum entered by Racheal Ortega RN 10/23/23 21:14: Pt also with IV to R foot. Placed in ED. This RN notified MD Trejo to please order for ok to place IV in foot. Original Note: This RN in to give patient nighttime scheduled meds. Patient asking for pain medication for pain to R ankle. This RN notified patient that he has 5mg of oxy he can get. Patient began yelling that Oxy will not help. This RN asked patient what his pain level was and patient started yelling im in 09/01 fshiva pain. What do you not get? Im in pain and I need something stronger than Oxy. Patient verbally escalating. Demanding to speak with MD and fired this RN from being patients nurse. Pt informed he has cannot verbally assault this RN. This RN left patients room and notified MD Trejo. to speak with patient when available.
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
[2023-10-23] MEDS: HYDROmorphone HCl 2 MG TABLET 1 MG PO (22:39)
[2023-10-23] MEDS: Acetaminophen 325 MG TABLET 650 MG PO (23:01)
[2023-10-23] MEDS: oxyCODONE HCl Immed Release 5 MG TABLET 10 MG PO (23:22)
[2023-10-23] MEDS: LORazepam 1 MG TABLET PO (23:22)
[2023-10-24] VITALS (14 sets, daily range): BP systolic 108–174; BP diastolic 63–80; PULSE 64–107; RESP 12–20; TEMP 36.2–36.6; O2SAT 97–100
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
[2023-10-24] MEDS: oxyCODONE HCl Immed Release 5 MG TABLET 10 MG PO ×3 (03:34→14:01)
[2023-10-24] MEDS: HYDROmorphone HCl 2 MG TABLET 1 MG PO (03:34)
[2023-10-24] MEDS: Lactated Ringers 1,000 ML 150 ML IVCONT (03:35)
[2023-10-24] MEDS: Sodium Bicarbonate 8.4% 150 MEQ in Dextrose 5 % 850 ML 50 MEQ IV (03:53)
--- NOTE | 2023-10-24 05:31 | PC.NURSE ---
Pt requesting phone to call his mother. This RN stated to patient that the phone will be brought in so he can call his mother but as soon as he starts becoming aggressive again and yelling and throwing, phone privileges will be removed. Patient stated he is aware and is in verbal agreement not to get aggressive.
[2023-10-24 06:27] LABS: Hematocrit 36.5 % (42.0-52.0); Hemoglobin 12.7 g/dl (14.0-18.0); Mean Corpuscular HGB Conc 34.8 g/dl (31.0-36.0); Mean Corpuscular Hemoglobin 30.7 pg (27.0-33.0); Mean Corpuscular Volume 88.2 fL (80.0-98.0); Mean Platelet Volume 9.5 fL (9.4-12.4); Platelet Count 149 X10*3/uL (160-400); Red Blood Count 4.14 X10*6/uL (4.60-5.80); Red Cell Distribution Width 12.5 % (11.0-16.0); White Blood Count 4.9 X10*3/uL (4.8-10.8)
[2023-10-24 06:58] LABS: Anion Gap 12 (12-20); Blood Urea Nitrogen 9 mg/dL (9-16); Calcium 8.3 mg/dL (8.4-10.2); Carbon Dioxide 28 mmol/L (22-29); Chloride 103 mmol/L (96-108); Creatinine Clr Calc Pharmacy 151.9; Estimated Glomerular Filt Rate > 60; Glucose Fasting 102 mg/dL (60-99); Potassium 3.6 mmol/L (3.3-5.1); Sodium 139 mmol/L (135-145)
[2023-10-24] MEDS: Dextroamphetamine/Amphetamine XR 10 MG CAP.ER.24H 60 MG PO (08:45)
[2023-10-24] MEDS: Enoxaparin Sodium 40 MG/0.4 ML SYRINGE SUBCUT (08:49)
[2023-10-24] MEDS: Nicotine 21 MG PATCH.TD24 TRANSDERMA (08:49)
[2023-10-24] MEDS: levETIRAcetam 500 MG TABLET PO (08:49)
[2023-10-24] MEDS: Dextroamphetamine/Amphetamine XR 5 MG CAP.ER.24H 15 MG PO (08:49)
--- NOTE | 2023-10-24 08:49 | HO.PM.IMPN ---
Subjective Subjective Date of Service: 10/24/23 Interval History: right arm pain Physical Exam Vital Signs: Vital Signs: Last Vital Signs Temp 97.1 F 10/24/23 07:42 Pulse 64 10/24/23 07:42 Resp 18 10/24/23 07:42 BP 126/74 10/24/23 07:42 Pulse Ox 97 10/24/23 07:42 O2 Del Method Room Air 10/24/23 07:42 O2 Flow Rate 3 10/23/23 07:15 BMI result Body Mass Index 28.0 Appearance: opiate intoxication - somnolent but woken by voice saying narcan, tactile stimuli on end tidal and O2, mild acute distress. Eyes: Pupils pinpoint ENT: Pharynx dry MMM Neck: Normal inspection. Neck supple. CVS: tachycardic heart rate and rhythm. Pulses normal. Respiratory: No respiratory distress. Breath sounds normal. Abdomen: Soft and nontender. Skin: Skin warm and dry. Normal skin color. track kendall noted no signs of cellulitis Extremities: No lower extremity edema. compartments are soft and compressible I do not see any areas of compartment syndrome R arm and leg is soft, L ball of foot bloodied blister Neuro: Oriented X 3. 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, R leg weaker than left, he reports he feels it less than left to light touch has R wrist drop Objective Data Active Medications Acetaminophen (Acetaminophen 325 Mg Tablet) 650 mg PO Q6H PRN PRN Reason: Pain, Mild (Pain Scale 1-3), fever or headache Last Admin: 10/23/23 23:01 Dose: 650 mg Documented By: SALVADOR Amitriptyline HCl (Amitriptyline Hcl 50 Mg Tablet) 50 mg PO BEDTIME [facility] Last Admin: 10/23/23 20:35 Dose: 50 mg Documented By: SALVADOR Amphetamine/Dextroamphetamine (Dextroamphetamine/Amphetamine Xr 5 Mg Cap.Er.24h) 15 mg PO DAILY@0800 [facility] Amphetamine/Dextroamphetamine (Dextroamphetamine/Amphetamine Xr 10 Mg Cap.Er.24h) 60 mg PO DAILY@0800 [facility] Calcium Carbonate (Calcium Carbonate 750 Mg Tab.Chew) 750 mg PO Q4H PRN PRN Reason: Heartburn Diazepam (Diazepam 5 Mg Tablet) 10 mg PO TID@0800,1200,1600 [facility] Enoxaparin Sodium (Enoxaparin Sodium 40 Mg/0.4 Ml Syringe) 40 mg SUBCUT Q24H [facility] Last Admin: 10/23/23 11:19 Dose: 40 mg Documented By: NATALEE Gabapentin (Gabapentin 400 Mg Capsule) 800 mg PO TID@0800,1200,1600 [facility] Lactated Ringer's (Lr) 1,000 mls @ 150 mls/hr IVCONT .Q6H40M [facility] Last Admin: 10/24/23 04:59 Dose: Not Given Documented By: SALVADOR Non-Admin Reason: IV Running Levetiracetam (Levetiracetam 500 Mg Tablet) 500 mg PO BID [facility] Last Admin: 10/23/23 20:38 Dose: Not Given Documented By: SALVADOR Non-Admin Reason: Patient Refused Magnesium Hydroxide (Milk Of Magnesia 30 Ml Oral.Susp) 30 ml PO DAILY PRN PRN Reason: Constipation Melatonin (Melatonin 3 Mg Tablet) 6 mg PO BEDTIME PRN PRN Reason: Insomnia Nicotine (Nicotine 21 Mg Patch.Td24) 21 mg TRANSDERMA DAILY [facility] Last Admin: 10/23/23 13:58 Dose: 21 mg Documented By: NATALEE Oxycodone HCl (Oxycodone Hcl Immed Release 5 Mg Tablet) 10 mg PO Q4H PRN PRN Reason: Pain, Moderate(Pain Scale 4-6) Last Admin: 10/24/23 03:34 Dose: 10 mg Documented By: SALVADOR Sodium Chloride (0.9 % Sodium Chloride Flush 3 Ml Syringe) 3 ml IVFLUSH QSHIFT [facility] Last Admin: 10/24/23 02:54 Dose: Not Given Documented By: SALVADOR Non-Admin Reason: IV Running Labs 10/24/23 06:04 10/24/23 06:04 Labs: Laboratory Results - last 24 hr 10/24/23 06:04 MCV 88.2 MCH 30.7 MCHC 34.8 RDW 12.5 Plt Count 149 L MPV 9.5 Absolute Nucleated RBC 0.000 Nucleated RBC % (auto) 0.0 Anion Gap 12 Estim Creat Clear Calc 151.9 Estimated GFR > 60 Fasting Glucose 102 H Calcium 8.3 L D Total Creatine Kinase 30325 H Assessment and Plan (1) Opioid use disorder: Status: Acute Plan 33M PMH polysubstance dependence, htn, adhd, mood disorder, LBBB, presented with right sided weakness acute rhabdomyolosis, due to acute toxic encephlaopathy from opiates, complicated by right wrist drop iv hydration, monitor labs, addiction team following cpk improved from 20K to 10K mild feliz due to rhabdo resolved htn no longer on meds, monitor mood disorder, adhd continue adderal, amitryptilline, valium dvt prophylaxis - lovenox full code reason for continued hospitalization:aggressive iv hydration Quality Stroke Does the patient have a stroke diagnosis?: No VTE Prior VTE?: No VTE Risk Level:: Medical - moderate - high VTE Device Contraindication: Treatment Not Indicated VTE Drug Contraindication: N/A - Med Ordered
[2023-10-24] MEDS: methADONE HCl 20 MG/2 ML ORAL.CONC 30 MG PO (08:53)
--- NOTE | 2023-10-24 12:15 | PM.EVENT ---
Event Note Date of Service: 10/24/23 Event Note: patient very agitated, threatening staff, combative, spitting, throwing objects in room. security called. 4 point restraintapplied, 5mg haldol IM, 2mg iv ativan. somewhat calmer now. patient reports haldol allergy non known allergies listed. states he gets teeth clenching and seizures does not sound like true allergy, possibly has had EPS in past. not displaying any reaction at this time. will monitor closely. Time Spent With Patient Time: Total time managing care of this patient today ____ minutes.
[2023-10-24] MEDS: Haloperidol Lactate 5 MG/ML VIAL IM (12:24)
[2023-10-24] MEDS: LORazepam 2 MG/ML VIAL IVPUSH (12:25)
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
[2023-10-24] MEDS: methADONE HCl 20 MG/2 ML ORAL.CONC 10 MG PO ×2 (13:58→16:47)
[2023-10-24] MEDS: Gabapentin 400 MG CAPSULE 800 MG PO ×2 (13:58→16:47)
[2023-10-24] MEDS: diazePAM 5 MG TABLET 10 MG PO ×2 (13:58→16:47)
--- NOTE | 2023-10-24 14:31 | PC.NURSE ---
restraints removed at 1349 pt calm and cooperative. Good range of motion and pulse noted to all previous restraint sights. Vital signs stable.
--- NOTE | 2023-10-24 14:47 | P.PNADD_ITS ---
Subjective Subjective Date of Service: 10/24/23 Reason For Visit: rhabdo Interim History: Patient seen in follow up in room 453 Awake, alert, irritable affect. Verbalizing anger that IV dilaudid is not being given to him, I need 4mg, not 1mg like they gave me last night . Stated that methadone dose was too low. After several minutes of allowing patient to state his frustrations, this sports book writer explained to patient that when he was seen yesterday, he was still under the influence and he stated he did not want methadone. Patient shared that he orally consumed several bags of heroin/fentanyl prior to presenting to ED and this is why he was so out of it for so long . Challenging to illicit any clinical information from patient as he was focused on IV pain medications and then about knowing if his wallet was in his belongings. He denies any withdrawal sx, and when t/w stated dose would be increased by 10mg and PRN for evening dose he asked for 20mg at once now, along with pain medication. He reports pain and numbness on right side of body. He does not appear to be experiencing discomfort. No grimacing, wincing noted with any movement when t/w present in room. There is no restlessness or diaphoresis noted. Speech is pressured. VS prior to evaluation WNL. Entirety of interview patient with aggressive tone. Unwilling to discuss appropriateness of his requests for IV pain medications. Unwilling to acknowledge or accept concern for inappropriate use of medications ciara given numerous sedating medications already ordered. Limited social history obtained -reports he recently moved to this area and has been staying in a tent -does not have any family or friends in this area and states that he moved away from family -states that he was in [facility] until February and was connected to [facility] then Review of Systems Constitutional: Reports as per HPI Mental Status Exam Mental Status Exam Level of Consciousness: Awake Patient Behavior: Aggressive (verbally) Diagnostics Vital Signs (24Hr): Vital Signs - 24 hr 10/23/23 16:24 10/23/23 16:45 10/23/23 17:50 Temperature 97.2 F 93.7 F L Pulse Rate 85 93 82 Respiratory Rate 20 12 20 Blood Pressure 125/61 104/55 L 100/55 L Pulse Oximetry 99 98 Oxygen Delivery Method Room Air Room Air 10/23/23 19:29 10/23/23 23:10 10/24/23 03:30 Temperature 98.3 F 98.0 F 97.9 F Pulse Rate 86 86 74 Respiratory Rate 20 20 20 Blood Pressure 114/62 124/70 108/65 Pulse Oximetry 99 97 98 Oxygen Delivery Method Room Air Room Air 10/24/23 04:34 10/24/23 07:42 10/24/23 11:19 Temperature 97.1 F 97.2 F Pulse Rate 64 94 Respiratory Rate 19 18 20 Blood Pressure 126/74 137/74 Pulse Oximetry 97 100 Oxygen Delivery Method Room Air Room Air 10/24/23 12:15 10/24/23 12:30 10/24/23 12:45 Temperature Pulse Rate 107 H 88 92 Respiratory Rate 16 12 14 Blood Pressure 123/68 150/66 H 141/63 H Pulse Oximetry 98 99 99 Oxygen Delivery Method Room Air Room Air Room Air 10/24/23 13:00 10/24/23 13:15 10/24/23 13:30 Temperature Pulse Rate 99 68 70 Respiratory Rate 12 14 14 Blood Pressure 159/68 H 174/80 H 156/68 H Pulse Oximetry 99 100 98 Oxygen Delivery Method Room Air Room Air Room Air 10/24/23 13:46 Temperature Pulse Rate 74 Respiratory Rate 14 Blood Pressure 154/64 H Pulse Oximetry 98 Oxygen Delivery Method Room Air BMI result Body Mass Index 28.0 Labs 10/24/23 06:04 10/24/23 06:04 Labs: Laboratory Results - last 48 hr 10/23/23 10/24/23 03:57 06:04 WBC 5.9 4.9 RBC 4.56 L 4.14 L Hgb 13.5 L 12.7 L Hct 39.7 L 36.5 L MCV 87.1 88.2 MCH 29.6 30.7 MCHC 34.0 34.8 RDW 12.7 12.5 Plt Count 169 149 L MPV 9.5 9.5 Immature Gran % (Auto) 0.2 Neut % (Auto) 65.7 Lymph % (Auto) 22.4 Stokes % (Auto) 10.9 Eos % (Auto) 0.5 Baso % (Auto) 0.3 Lymph # (Auto) 1.3 Stokes # (Auto) 0.7 Eos # (Auto) 0.0 Baso # (Auto) 0.0 Abs Immat Gran (auto) 0.01 Absolute Neuts (auto) 3.9 Absolute Nucleated RBC 0.000 0.000 Nucleated RBC % (auto) 0.0 0.0 PT 14.5 H INR 1.2 H Sodium 139 139 Potassium 3.6 3.6 Chloride 102 103 Carbon Dioxide 30 H 28 Anion Gap 11 L 12 BUN 19 H 9 Creatinine 1.25 0.76 Estim Creat Clear Calc 92.3 151.9 Estimated GFR > 60 > 60 Random Glucose 195 H Fasting Glucose 102 H Calcium 8.9 8.3 L D Magnesium 2.3 Total Bilirubin 0.5 Direct Bilirubin 0.2 AST 311 H ALT 93 H Alkaline Phosphatase 62 Total Creatine Kinase 81170 H 09842 H Troponin I High Sens 5.0 Total Protein 7.3 Albumin 4.2 Lipase 11 Ethyl Alcohol < 10 Influenza Type A (PCR) NEGATIVE Influenza Type B (PCR) NEGATIVE RSV RNA Qual (PCR) NEGATIVE SARS-CoV-2 RNA (RT-PCR) NEGATIVE Imaging Radiology Impressions: ITS Impressions Chest X-Ray 10/23/23 04:45 IMPRESSION: Low lung volumes with mild bibasilar atelectasis. Head/Neck CTA 10/23/23 05:20 IMPRESSION: No hemodynamically significant stenosis in the major arteries of the neck. No large vessel occlusion or significant stenosis in the intracranial circulation. Medications Medications Current Medications Acetaminophen (Acetaminophen 325 Mg Tablet) 650 mg PO Q6H PRN PRN Reason: Pain, Mild (Pain Scale 1-3), fever or headache Last Admin: 10/23/23 23:01 Dose: 650 mg Amitriptyline HCl (Amitriptyline Hcl 50 Mg Tablet) 50 mg PO BEDTIME [facility] Last Admin: 10/23/23 20:35 Dose: 50 mg Amphetamine/Dextroamphetamine (Dextroamphetamine/Amphetamine Xr 5 Mg Cap.Er.24h) 15 mg PO DAILY@0800 [facility] Last Admin: 10/24/23 08:49 Dose: 15 mg Amphetamine/Dextroamphetamine (Dextroamphetamine/Amphetamine Xr 10 Mg Cap.Er.24h) 60 mg PO DAILY@0800 [facility] Last Admin: 10/24/23 08:45 Dose: 60 mg Calcium Carbonate (Calcium Carbonate 750 Mg Tab.Chew) 750 mg PO Q4H PRN PRN Reason: Heartburn Diazepam (Diazepam 5 Mg Tablet) 10 mg PO TID@0800,1200,1600 [facility] Last Admin: 10/24/23 13:58 Dose: 10 mg Enoxaparin Sodium (Enoxaparin Sodium 40 Mg/0.4 Ml Syringe) 40 mg SUBCUT Q24H [facility] Last Admin: 10/24/23 08:49 Dose: 40 mg Gabapentin (Gabapentin 400 Mg Capsule) 800 mg PO TID@0800,1200,1600 [facility] Last Admin: 10/24/23 13:58 Dose: 800 mg Lactated Ringer's (Lr) 1,000 mls @ 150 mls/hr IVCONT .Q6H40M [facility] Last Infusion: 10/24/23 12:14 Dose: Infused Levetiracetam (Levetiracetam 500 Mg Tablet) 500 mg PO BID [facility] Last Admin: 10/24/23 08:49 Dose: 500 mg Magnesium Hydroxide (Milk Of Magnesia 30 Ml Oral.Susp) 30 ml PO DAILY PRN PRN Reason: Constipation Melatonin (Melatonin 3 Mg Tablet) 6 mg PO BEDTIME PRN PRN Reason: Insomnia Methadone HCl (Methadone Hcl 20 Mg/2 Ml Oral.Conc) 10 mg PO ONCE ONE Stop: 10/24/23 18:01 Methadone HCl (Methadone Hcl 20 Mg/2 Ml Oral.Conc) 55 mg PO DAILY [facility] Nicotine (Nicotine 21 Mg Patch.Td24) 21 mg TRANSDERMA DAILY [facility] Last Admin: 10/24/23 08:49 Dose: 21 mg Oxycodone HCl (Oxycodone Hcl Immed Release 5 Mg Tablet) 10 mg PO Q4H PRN PRN Reason: Pain, Moderate(Pain Scale 4-6) Last Admin: 10/24/23 14:01 Dose: 10 mg Sodium Chloride (0.9 % Sodium Chloride Flush 3 Ml Syringe) 3 ml IVFLUSH QSHIFT [facility] Last Admin: 10/24/23 09:38 Dose: Not Given Allergies Allergies Allergy/AdvReac Type Severity Reaction Status Date / Time No Known Allergies Allergy Verified 10/23/23 02:54 Assessment & Plan Assessment & Plan (1) Opioid use disorder: Status: Acute Code(s): F11.90 - Opioid use, unspecified, uncomplicated Assessment and Plan: * methadone 10mg x1 and methadone 10mg in evening * methadone 55mg in AM * continue comfort meds as needed * aggressive and demanding behaviors do not align with pain or withdrawal sx. More likely related to increased cravings for substances. * case discussed with attending and current medical issues should not necessitate high doses of narcotic pain medications--PO oxycodone as ordered seems to be appropriate at this time, reassess as needed. * will follow up on Thursday morning Total time managing care of this patient today __35__ minutes.
[2023-10-24] MEDS: Acetaminophen 325 MG TABLET 650 MG PO (16:47)
--- NOTE | 2023-10-24 16:49 | P.DS_ITS ---
DS: Providers Provider Date of Service: 10/24/23 Date of admission: 10/23/23 08:35 Primary care physician: Unknown Physician Consults: 10/23/23 08:43 Addiction Medicine Routine Consulting Provider: Addiction Covering Reason for consultation: polysubstance DS: Diagnosis Discharge Diagnosis (1) Opioid use disorder: Status: Acute DS: Summary Hospital Course Hospital Course: from initial hpi: 33M PMH polysubstance dependence, htn, adhd, mood disorder, LBBB, presented with right sided weakness. patient stating he was having a stroke . cta head and neck was negative. he is vague historian. very lethargic during interview. admits to taking opiates. reports passing out previously and lying on ground for long time. labs significant for rhabdo with cpk of 20K, creatinine normal. did require one dose of narcan for bradypnea and hypotension, responded well. hospital course: Patient was admitted for acute rhabdomyolysis and acute kidney injury due to acute toxic encephalopathy from opiate overdose complicated by right wrist drop. Patient received aggressive IV hydration. Creatinine improved[place] [address] to [address]. For opiate dependence was seen by Addiction team who started patient on methadone and also recommended continuing oxycodone p.o. for patient has right-sided pain. Patient did not demonstrate symptoms or signs of withdrawal. Throughout hospitalization patient demonstrated opiate seeking behavior, was belligerent and aggressive. Patient was witnessed to have thrown breakfast tray against mirror in his room. Was yelling and spitting at staff. Security was called. Patient required IM Haldol and IV Ativan as well as four- point restraint. Patient then calmed down and restraints released after about 1 hour. Several hours later patient requested to leave against medical advice. Plan was to continue IV hydration as CPK was still elevated and patient at risk for renal toxicity. Patient was able to demonstrate understanding of his medical conditions and the risks of leaving against medical advice including renal failure and . Time Attestation Discharge Coordination Time (in mins): 34 Quality: Safe Use of Opioids Does Pt have an Active Cancer Diagnosis on the Problem List?: No Quality: Stroke Does the patient have a stroke diagnosis?: No Physical Exam Vital Signs: Vital Signs: Last Vital Signs Temp 97.2 F 10/24/23 11:19 Pulse 74 10/24/23 13:46 Resp 14 10/24/23 13:46 BP 154/64 H 10/24/23 13:46 Pulse Ox 98 10/24/23 13:46 O2 Del Method Room Air 10/24/23 13:46 O2 Flow Rate 3 10/23/23 07:15 BMI result Body Mass Index 28.0 alert, oriented times 3, agitated, good insight DS: Data Data Completed and Pending Labs on day of discharge: Laboratory Results - last 24 hr 10/24/23 06:04 WBC 4.9 RBC 4.14 L Hgb 12.7 L Hct 36.5 L MCV 88.2 MCH 30.7 MCHC 34.8 RDW 12.5 Plt Count 149 L MPV 9.5 Absolute Nucleated RBC 0.000 Nucleated RBC % (auto) 0.0 Sodium 139 Potassium 3.6 Chloride 103 Carbon Dioxide 28 Anion Gap 12 BUN 9 Creatinine 0.76 Estim Creat Clear Calc 151.9 Estimated GFR > 60 Fasting Glucose 102 H Calcium 8.3 L D Total Creatine Kinase 21487 H Discharge Plan Discharge Anticipated Discharge Date/Time: 10/24/23 16:48 Patient Disposition: Left Against Medical Advice Discharge Diagnosis: opiate overdose, rhabdo, feliz Referrals: Physician,Unknown J [Primary Care Provider] - 1 Week Discharge Medications: Continued amitriptyline 50 mg tablet 50 mg PO BEDTIME gabapentin 800 mg tablet 800 mg PO TID@0800,1200,1600 testosterone cypionate 200 mg/mL oil 100 mg IM MOFR dextroamphetamine-amphetamine 30 mg capsule,extended release 24hr 2 cap PO DAILY@0800 dextroamphetamine-amphetamine 15 mg capsule,extended release 24hr 1 cap PO DAILY@0800 diazepam 10 mg Tablet 10 mg PO TID@0800,1200,1600 Discharge Orders: Discharge Order (Routine); Ordered 10/24/23 Ordered By: Luis Dent Diet: Advance to usual diet Activity on Discharge: As tolerated Print Language: Unable To Collect Care Plan Goals: recovery Health Concerns: opiate dependence, rhabdo Plan of Treatment: cannot properly treat out of hospital Assessment: see above
--- NOTE | 2023-10-25 12:14 | MHC.CM.PN ---
CM ATTEMPTED TO MEET WITH PT MULTIPLE TIMES YESTERDAY, HOWEVER PT SLEEPING DUE TO IM HALDOL AND IV ATIVAN AFTER EXHIBITING AGGRESSION TOWARDS STAFF. PT LEFT AMA PRIOR TO CM RETURN TODAY
== END 2023-10-24 17:06 | disposition left against medical advice (07) | DRG 917 ==
LOC: HO.ED 06:23 → HO.EDOVER 08:41 → HO.IMC 15:58
PROVIDERS: Admitting Provider Internal Medicine; Emergency Provider Emergency Medicine; Visit Provider Internal Medicine
DX: T40.601A Poisoning by unspecified narcotics, accidental (unintentional), initial encounter (principal); G92.8 Other toxic encephalopathy; F19.20 Other psychoactive substance dependence, uncomplicated; M62.82 Rhabdomyolysis; N17.9 Acute kidney failure, unspecified; M21.331 Wrist drop, right wrist; F39 Unspecified mood [affective] disorder; F90.9 Attention-deficit hyperactivity disorder, unspecified type; Z20.822 Contact with and (suspected) exposure to COVID-19; Z78.1 Physical restraint status; Z87.891 Personal history of nicotine dependence; Z79.899 Other long term (current) drug therapy
CPT/HCPCS: 0241U; 36415; 70496; 70498; 71045; 80048; 80076; 80307; 82550; 83690; 83735; 84484; 85025; 85027; 85610; 93005; 97167; 99285; J1630; J1650; J2060; J2310; J2405; J7120; Q9967

== ENCOUNTER → 2023-10-23 03:44 | Outpatient (BNV) | payer OTHER, SELFPAY | PROVIDERS: Admitting Provider Internal Medicine; Emergency Provider Emergency Medicine; Visit Provider Internal Medicine Cardiovascular Disease | DX: R94.31 Abnormal electrocardiogram [ECG] [EKG] (principal) | CPT/HCPCS: 93010 ==

== ENCOUNTER → 2023-10-23 08:35 | Outpatient (BNV) | payer OTHER, SELFPAY | PROVIDERS: Admitting Provider Internal Medicine; Emergency Provider Emergency Medicine; Visit Provider Internal Medicine | DX: M21.331 Wrist drop, right wrist (principal); M62.82 Rhabdomyolysis; G92.8 Other toxic encephalopathy | CPT/HCPCS: 99223; 99239 ==

== ENCOUNTER → 2023-10-23 08:35 | Outpatient (BNV) | payer OTHER, SELFPAY | PROVIDERS: Admitting Provider Internal Medicine; Emergency Provider Emergency Medicine; Visit Provider Nurse Practitioner Psychiatric/Mental Health | DX: F11.90 Opioid use, unspecified, uncomplicated (principal) | CPT/HCPCS: 99222; 99232 ==